=== PATIENT | female | born 1960 | race Caucasian/White ===

== ENCOUNTER → 2018-04-25 | Outpatient (CLI) | payer BC ==
--- NOTE | 2018-04-29 08:04 | MM ---
Reason for exam: screening (asymptomatic). Last mammogram was performed 2 years and 11 months ago. History: Patient is postmenopausal and is nulliparous. Family history of breast cancer in sister at age 58. Benign excisional biopsy of the right breast, 2004. Physical Findings: A clinical breast exam by your physician is recommended on an annual basis and results should be correlated with mammographic findings. MG 3D Screening Mammo W/Cad Bilateral CC and MLO view(s) were taken. Prior study comparison: May 19, 2015, bilateral MG screening mammo w CAD. October 02, 2012, bilateral digital screening mammo w/CAD. The breast tissue is heterogeneously dense. This may lower the sensitivity of mammography. No significant changes when compared with prior studies. ASSESSMENT: Benign, BI-RAD 2 RECOMMENDATION: Routine screening mammogram of both breasts in 1 year.
== END | disposition home or self-care (01) ==
LOC: RADMAMWWP 16:45
PROVIDERS: ATTEND Internal Medicine
DX: Z12.31 Encounter for screening mammogram for malignant neoplasm of breast (principal); Z80.3 Family history of malignant neoplasm of breast
CPT/HCPCS: 77063; 77067

== ENCOUNTER → 2018-12-03 | Outpatient (CLI) | payer BC ==
[2018-12-03 07:55] LABS: HCT 39.6 % (34.0-46.0); MCH 31.9 pg (25.0-35.0); MCHC 32.8 g/dL (31.0-37.0); MCV 97.4 fL (80.0-100.0); Mean Platelet Volume 6.4; Platelet Count 236 k/uL (150-450); RBC 4.07 m/uL (3.80-5.40); RDW 13.2 % (11.5-15.5); WBC 3.7 k/uL (3.8-10.6)
[2018-12-03 08:00] LABS: Appearance,Urine Clear (Clear); Bilirubin,Urine Negative (Negative); Blood,Urine Trace (Negative); Color,Urine Yellow; Glucose,Urine (UA) Negative (Negative); Ketones,Urine Negative (Negative); Leukocyte Esterase,Urine Negative (Negative); Mucus,Urine Rare /hpf; Nitrite,Urine Negative (Negative); PH, Urine 6.5 (5.0-8.0); Protein,Urine Negative (Negative); RBC,Urine 3 /hpf (0-5); Specific Gravity,Urine 1.016 (1.001-1.035); Squamous Epithelial Cell,Urine <1 /hpf (0-4); Urobilinogen,Urine <2.0 mg/dL (<2.0); WBC,Urine 1 /hpf (0-5)
[2018-12-03 11:10] LABS: Albumin 4.4 g/dL (3.80-4.90); Anion Gap 8.4 mmol/L (4.00-12.00); Calcium 9.6 mg/dL (8.7-10.3); Carbon Dioxide 30.6 mmol/L (21.6-31.8); Globulin 2.2 g/dL (1.6-3.3); LDL Cholesterol,Calculated 97.8 mg/dL (0.0-131.0); Total Bilirubin 0.5 mg/dL (0.2-1.2); Total Protein 6.6 g/dL (6.2-8.2); VLDL Calculation 12.2 mg/dL (5.00-40.00)
== END | disposition home or self-care (01) ==
LOC: LABWHC1 07:20
PROVIDERS: ATTEND Internal Medicine
DX: I10 Essential (primary) hypertension (principal); E78.5 Hyperlipidemia, unspecified; R53.83 Other fatigue
CPT/HCPCS: 36415; 80053; 80061; 81001; 84443; 85027

== ENCOUNTER → 2019-05-21 | Outpatient (CLI) | payer BC ==
--- NOTE | 2019-05-23 09:42 | MM ---
Reason for exam: screening (asymptomatic). Last mammogram was performed 1 year and 1 month ago. History: Patient is postmenopausal and is nulliparous. Family history of breast cancer in sister at age 58. Benign excisional biopsy of the right breast, 2004. Physical Findings: A clinical breast exam by your physician is recommended on an annual basis and results should be correlated with mammographic findings. MG 3D Screening Mammo W/Cad Bilateral CC and MLO view(s) were taken. Prior study comparison: April 25, 2018, bilateral MG 3d screening mammo w/cad. May 19, 2015, bilateral MG screening mammo w CAD. The breast tissue is heterogeneously dense. This may lower the sensitivity of mammography. Focal asymmetry left lower inner quadrant. This finding is changed when compared with previous exams. ASSESSMENT: Incomplete: need additional imaging evaluation, BI-RAD 0 RECOMMENDATION: Special view mammogram of the left breast. If lesion persists on supplemental views, image directed ultrasound is recommended. [facility] will attempt to contact patient to return for supplemental views and ultrasound if indicated.
== END | disposition home or self-care (01) ==
LOC: RADMAMWWP 16:52
PROVIDERS: ATTEND Internal Medicine
DX: Z12.31 Encounter for screening mammogram for malignant neoplasm of breast (principal)
CPT/HCPCS: 77063; 77067

== ENCOUNTER → 2019-06-04 | Outpatient (CLI) | payer BC ==
--- NOTE | 2019-06-04 11:18 | MM ---
Reason for exam: additional evaluation requested from abnormal screening. Last mammogram was performed less than 1 month ago. History: Patient is postmenopausal and is nulliparous. Family history of breast cancer in sister at age 58. Benign excisional biopsy of the right breast, 2004. Physical Findings: Nurse did not find any significant physical abnormalities on exam. MG 3D Work Up W/Cad LT Spot compression CC, spot compression LM, and LM view(s) were taken of the left breast. Prior study comparison: May 21, 2019, bilateral MG 3d screening mammo w/cad. April 25, 2018, bilateral MG 3d screening mammo w/cad. No distinct lesion persists on additional views. These results were verbally communicated with the patient and result sheet given to the patient on 06/04/19. ASSESSMENT: Negative, BI-RAD 1 RECOMMENDATION: Return to routine screening mammogram schedule for both breasts.
== END | disposition home or self-care (01) ==
LOC: RADMAMWWP 10:14
PROVIDERS: ATTEND Internal Medicine
DX: R92.8 Other abnormal and inconclusive findings on diagnostic imaging of breast (principal)
CPT/HCPCS: 77061; 77065

== ENCOUNTER 2019-06-05 16:59 | Emergency (ER) | payer BC ==
[2019-06-05 17:04] VITALS: TEMP 98
--- NOTE | 2019-06-05 17:07 | ED ---
Chest Pain HPI - General Chief Complaint: Chest Pain Stated Complaint: High BP, chest pain Time Seen by Provider: 06/05/19 17:06 Source: patient, RN notes reviewed, old records reviewed Mode of arrival: ambulatory Limitations: no limitations - History of Present Illness Initial Comments: This is a 5-year-old female the ER for evaluation. Patient is today for evaluation of anxiety, patient having chest pain. Patient has no significant history of chest pain, also presented for blood pressure elevation anxiety, chest pain is left-sided rating to back. No prior history of similar pain. No nausea no vomiting no no shortness of breath, no fevers cough or congestion MD Complaint: chest pain -: hour(s) Onset: during rest Pain Location: substernal, left chest Pain Radiation: LUE, back Severity: moderate Severity scale (1-10): 4 Quality: tightness Consistency: constant Improves With: nothing Worsens With: nothing Anginal Symptoms: dyspnea Other Symptoms: cough Treatments Prior to Arrival: none - Related Data On Oral Contraceptives: No Home Medications Medication Instructions Recorded Confirmed No Known Home Medications 06/05/19 06/05/19 Allergies Allergy/AdvReac Type Severity Reaction Status Date / Time No Known Allergies Allergy Verified 06/05/19 17:22 Review of Systems ROS Statement: Those systems with pertinent positive or pertinent negative responses have been documented in the HPI. ROS Other: All systems not noted in ROS Statement are negative. EKG Findings - EKG Comments: EKG Findings:: EKG shows sinus rhythm rate of 69, [place] 124, QRS 80, QTC 447 Past Medical History Past Medical History: Hypertension History of Any Multi-Drug Resistant Organisms: None Reported Past Surgical History: Adenoidectomy, Tonsillectomy Past Psychological History: No Psychological Hx Reported Smoking Status: Never smoker Past Alcohol Use History: None Reported Past Drug Use History: None Reported General Exam Limitations: no limitations General appearance: alert, in no apparent distress Head exam: Present: atraumatic, normocephalic, normal inspection Eye exam: Present: normal appearance, PERRL, EOMI. Absent: scleral icterus, conjunctival injection, periorbital swelling ENT exam: Present: normal exam, mucous membranes moist Neck exam: Present: normal inspection. Absent: tenderness, meningismus, lymphadenopathy Respiratory exam: Present: normal lung sounds bilaterally. Absent: respiratory distress, wheezes, rales, rhonchi, stridor Cardiovascular Exam: Present: regular rate, normal rhythm, normal heart sounds. Absent: systolic murmur, diastolic murmur, rubs, gallop, clicks GI/Abdominal exam: Present: soft, normal bowel sounds. Absent: distended, tenderness, guarding, rebound, rigid Extremities exam: Present: normal inspection, full ROM, normal capillary refill. Absent: tenderness, pedal edema, joint swelling, calf tenderness Back exam: Present: normal inspection Neurological exam: Present: alert, oriented X3, CN II-XII intact Psychiatric exam: Present: normal affect, normal mood Skin exam: Present: warm, dry, intact, normal color. Absent: rash Course Vital Signs 06/05/19 06/05/19 06/05/19 17:01 19:32 20:36 Temperature 98 F Pulse Rate 84 74 78 Respiratory 16 18 18 Rate Blood Pressure 171/83 150/86 117/86 O2 Sat by Pulse 100 100 100 Oximetry - Reevaluation(s) Reevaluation #1: Medical record is reviewed Patient still remains anxious but no need for blood pressure medication Chest Pain MDM - MDM 59 female the ER for evaluation of elevated blood pressure, blood pressure chest pain. Anxiety. Patient has normal chest CTA. Normal lab values, patient feeling better anxiety is decreased chest pain is improved and blood pressures improved without treatment. Patient can be discharged home Disposition Clinical Impression: Chest pain, Hypertension Disposition: HOME SELF-CARE Condition: Good Instructions (If sedation given, give patient instructions): Chest Pain (ED) Is patient prescribed a controlled substance at d/c from ED?: No Referrals: Nomi Mora MD [Primary Care Provider] - 1-2 days
[2019-06-05 18:17] LABS: Basophils % (A) 0 %; Eosinophils # (A) 0.1 k/uL (0-0.7); Eosinophils % (A) 1 %; HCT 40.3 % (34.0-46.0); HGB 13.3 gm/dL (11.4-16.0); Lymphocytes % (A) 19 %; MCH 31.7 pg (25.0-35.0); MCHC 33.1 g/dL (31.0-37.0); MCV 95.9 fL (80.0-100.0); Mean Platelet Volume 6.9; Monocytes # (A) 0.3 k/uL (0-1.0); Monocytes % (A) 6 %; Neutrophils # (A) 3.8 k/uL (1.3-7.7); Neutrophils % (A) 71 %; Platelet Count 221 k/uL (150-450); RDW 12.8 % (11.5-15.5); WBC 5.4 k/uL (3.8-10.6)
[2019-06-05 18:24] LABS: Albumin 4.8 g/dL (3.5-5.0); Calcium 9.9 mg/dL (8.4-10.2); Magnesium 2.2 mg/dL (1.6-2.3); Potassium 4.5 mmol/L (3.5-5.1); Total Bilirubin 0.6 mg/dL (0.2-1.3); Total Protein 7.9 g/dL (6.3-8.2)
--- NOTE | 2019-06-05 18:25 | XR ---
EXAMINATION TYPE: XR chest 2V DATE OF EXAM: 06/05/2019 COMPARISON: NONE HISTORY: Chest pain TECHNIQUE: Frontal and lateral views of the chest are obtained. FINDINGS: Heart and mediastinum are normal. Lungs are clear. Diaphragm is normal. There are chest le ads. Bony thorax is intact. There is minimal pleural thickening at the right lung apex. IMPRESSION: Mild pleural scarring at the right lung apex. No acute lung disease.
[2019-06-05 18:31] LABS: D-Dimer 0.29 mg/L FEU (<0.60); INR 0.9 (<1.2); Partial Thromboplastin Time 26.2 sec (22.0-30.0); Prothrombin Time 9.8 sec (9.0-12.0)
[2019-06-05] MEDS ORDERED: LABETALOL SYRINGE 5 MG/ML IVP STA (18:35)
[2019-06-05] MEDS ORDERED: LABETALOL 5 MG/ML VIAL MDV IVP STA (18:56)
[2019-06-05 19:33] VITALS: RESP 18
--- NOTE | 2019-06-05 19:43 | CT ---
EXAMINATION TYPE: CT angio chest DATE OF EXAM: 06/05/2019 7:28 PM COMPARISON: None HISTORY: Chest pain, high BP CT DLP: 175.4 mGycm Automated exposure control for dose reduction was used. CONTRAST: CTA scan of the thorax is performed with IV Contrast, patient injected with 100 mL of Isovue 370, pul monary embolism protocol. . There are 3-D post processed images. FINDINGS: There is minimal pleural thickening at the right lung apex. There is similar minimal change at the le ft lung apex. There is no evidence of a pulmonary mass. Heart size is normal. There is no pericardial effusion. There is no pleural effusion. Upper abdominal soft tissues are intact. There are no hilar masses. There is no mediastinal adenopathy. Thoracic aorta is intact. Ascending ao rta measures 3.3 cm. There is normal contrast opacification of the pulmonary arteries. There are no filling defects. The b romy thorax appears intact. IMPRESSION: MILD BILATERAL APICAL PLEURAL SCARRING. NO SUSPICIOUS PULMONARY MASS. NO EVIDENCE OF PULMONARY EMBOLI SM.
[2019-06-05 20:37] VITALS: BP 117/86; PULSE 78
== END 2019-06-05 20:37 | disposition home or self-care (01) ==
LOC: EC 16:59
DX: R07.2 Precordial pain (principal); I10 Essential (primary) hypertension; Z53.8 Procedure and treatment not carried out for other reasons
CPT/HCPCS: 36415; 93005; 85379; 83880; 80053; 83690; 83735; 84484; 85025; 85610; 85730; 71046; 71275; 99285; Q9967

== ENCOUNTER 2019-07-31 12:32 | Day surgery (SDC) | payer BC ==
[2019-07-24 09:52] VITALS: BMI 18.3
[~2019-07-31 12:32] MED LIST: DEXAMETHASONE SOD PHOSPHATE 10 MG/ML 1 ML VIAL IV ONE; HEPARIN SODIUM,PORCINE 5,000 UNIT/ML 1 ML VIAL SQ ONE; HYDROmorphone 0.5 MG/0.5 ML SYRINGE IVP PRN; LACTATED RINGERS 1,000 ML IV SCH; ONDANSETRON 4 MG/2 ML VIAL IVP ONE; SCOPOLAMINE 1.5MG/72HR PATCH TRANSDERM ONE
[2019-07-31] MEDS: LIDOCAINE 1% 20 ML VIAL (10MG/ML) FOR IV START INTRADERMA PRN ×2 (13:14→13:15)
[2019-07-31] MEDS ORDERED: MIDAZOLAM (PF) 2 MG/2 ML VIAL IV ONE (13:29)
--- NOTE | 2019-07-31 14:13 | P.ANPRN ---
Procedure Note - Anesthesia - Nerve Block Performed Bilateral Transversus Abdominis Single Time Out Performed: Yes Date of Procedure: 07/31/19 Procedure Start Time: 13:28 Procedure Stop Time: 13:48 Location of Patient Procedure: PreOp Indication: Acute Post-Operative Pain, Requested by Surgeon Sedation Type: Sedate with meaningful contact maintained Preparation: Sterile Prep, Sterile Dressing Position: Supine Catheter: None Needle Types: Pajunk Needle Gauge: 20 Ultrasound used to visualize needle placement: Yes Ultrasound used to observe medication spread: Yes Injectate: Other (see comment) (ropivacaine 0.2% 20 ml per side) Blood Aspirated: No Pain Paresthesia on Injection Noted: No Resistance on Injection: Normal Image Stored and Saved: Yes Events: Uneventful and Well Tolerated
[2019-07-31] MEDS ORDERED: NEOSTIGMINE 1 MG/ML 10 ML VIAL ONE (14:33)
[2019-07-31] MEDS ORDERED: SUCCINYLCHOLINE CHLORIDE 100 MG/5 ML SYR IV ONE (14:33)
[2019-07-31] MEDS ORDERED: fentaNYL (PF) 50 MCG/ML 2 ML AMP ONE (14:33)
[2019-07-31] MEDS ORDERED: LIDOCAINE 1% INJ 10MG/ML (20 ML MDV) ONE (14:33)
[2019-07-31] MEDS ORDERED: MIDAZOLAM 2 MG/2 ML VIAL ONE (14:33)
[2019-07-31] MEDS ORDERED: ROCURONIUM BROMIDE 10 MG/ML 10 ML VIAL IV ONE (14:33)
[2019-07-31] MEDS ORDERED: DEXAMETHASONE SOD PHOS (MDV) 100 MG/10 ML VIAL ONE (14:33)
[2019-07-31] MEDS ORDERED: PROPOFOL 10 MG/ML 20 ML VIAL IV ONE (14:33)
[2019-07-31] MEDS ORDERED: GLYCOPYRROLATE 0.2 MG/ML 2 ML VIAL ONE (14:33)
[2019-07-31] MEDS ORDERED: BUPIVACAINE (PF) 0.25% 30 ML VIAL SQ ONE ×2 (14:38)
--- NOTE | 2019-07-31 16:10 | P.OP ---
Date of Procedure: 07/31/19 Preoperative Diagnosis: Left femoral hernia Postoperative Diagnosis: Left inguinal hernia Procedure(s) Performed: Robotic left inguinal hernia repair Anesthesia: DOROTHY Surgeon: Teo Lewis Pathology: none sent Condition: stable Disposition: same day Indications for Procedure: 59-year-old female initially presented to the surgery clinic with complaints of left groin pain and a left groin bulge. On exam, it appeared that the patient did have a left femoral hernia and is also noted to have a history of a right femoral hernia that was repaired approximately 20 years ago. She denied any nausea or vomiting. Secondary to this, plan was made for a left robotic hernia repair. She was explained the risks, benefits and alternatives to the procedure and did provide consent prior to attending the operating suite. Operative Findings: Left indirect inguinal hernia Description of Procedure: The patient was brought into the operating suite and placed in supine position on the operating table. Sedation was provided by anesthesia and the patient un derwent endotracheal intubation. The patient was then prepped and draped in regular sterile fashion. A super umbilical vertical midline incision was made 20 cm superior to the pubis. Dissection was carried to the fascia the fascia was incised and a 12 mm trocar was placed. Pneumoperitoneum was then achieved. The hernia was clearly visualized on the left side. The right side was also examined and the previous repair was noted to be intact with no obvious herniation. 2 additional 8 mm trochars were placed 11 cm lateral to the midline incision site. The robot was undocked appropriately. After the patient was positioned, dissection was carried from the lateral aspect towards the medial aspect to create a window in the peritoneum. Dissection was carried and it was noted that the patient in fact had a indirect inguinal hernia. Dissection was carried to free the hernia sac from the cord structures. Once an appropriate amount of space was dissected, a Parietex Progrop mesh was placed into appropriate position. Once an appropriate position, the arterial defect was closed with a running 2-0 Vlock suture. The robot was undocked. The super umbilical incision site was closed with a Arnold-Ronda device and 0 Vicryl suture under direct visualization. All skin incisions were closed with 4-0 Vicryl subcuticular suture. The patient was awakened in the operating suite and taken to postanesthesia care unit in stable condition.
[2019-07-31 16:18] VITALS: TEMP 98.1
[2019-07-31 16:33] VITALS: RESP 16
[2019-07-31 17:57] VITALS: BP 134/73; PULSE 64
== END 2019-07-31 18:29 | disposition home or self-care (01) ==
LOC: OR 12:32
PROVIDERS: ATTEND Surgery
DX: K40.90 Unilateral inguinal hernia, without obstruction or gangrene, not specified as recurrent (principal); K41.90 Unilateral femoral hernia, without obstruction or gangrene, not specified as recurrent; I10 Essential (primary) hypertension; I08.3 Combined rheumatic disorders of mitral, aortic and tricuspid valves; Z79.899 Other long term (current) drug therapy; Z90.89 Acquired absence of other organs
CPT/HCPCS: 64488; 49650; C1781; J2250 ×2; J1644; J1100 ×2; J2710; J0690; J2405; J2001; J3010; J0330; J2704; J1170

== ENCOUNTER → 2019-09-09 | Outpatient (CLI) | payer BC | END | disposition home or self-care (01) | LOC: LABWHC1 16:57 | PROVIDERS: ATTEND Internal Medicine | DX: R53.83 Other fatigue (principal); L65.8 Other specified nonscarring hair loss | CPT/HCPCS: 36415; 84443 ==

== ENCOUNTER → 2019-10-03 | Outpatient (CLI) | payer BC ==
--- NOTE | 2019-10-03 08:39 | US ---
EXAMINATION TYPE: US abdomen complete DATE OF EXAM: 10/03/2019 COMPARISON: NONE CLINICAL HISTORY: R10.13 epigastric pain. recent inguinal hernia repair on the left and she has had e pigastric pain radiating upward EXAM MEASUREMENTS: Liver Length: 14.3 Gallbladder Wall: 0.1m CBD: 0.7m Spleen: 8.2m Right Kidney: 12.0 x 4.1cm Left Kidney: 11.3 x 4.1 x 5.4cm patient is extremely thin which made contact with probe very challenging Pancreas: wnl Liver: wnl Gallbladder: multiple folds Evidence for sonographic Estrada's sign: no CBD: wnl Spleen: wnl Right Kidney: appearance of severe hydronephrosis seen. Left Kidney: wnl Upper IVC: wnl Abd Aorta: wnl The liver is homogenous. The intrahepatic portion of the IVC and proximal abdominal aorta are within normal limits. There is no evidence of cholelithiasis. Common bile duct is unremarkable. The visu alized portions of the pancreas are homogenous. The spleen is unremarkable. Kidneys are symmetric a nd free of hydronephrosis. No renal lesions are seen. IMPRESSION: No distinct abnormality appreciated.
== END | disposition home or self-care (01) ==
LOC: RADUSWWP 07:41
PROVIDERS: ATTEND Internal Medicine Gastroenterology
DX: R10.13 Epigastric pain (principal)
CPT/HCPCS: 76700

== ENCOUNTER → 2019-12-03 | Outpatient (CLI) | payer BC ==
[2019-12-03 07:58] LABS: HCT 40.5 % (34.0-46.0); HGB 13.5 gm/dL (11.4-16.0); MCH 32.7 pg (25.0-35.0); MCHC 33.3 g/dL (31.0-37.0); MCV 98.3 fL (80.0-100.0); Mean Platelet Volume 7.7; Platelet Count 167 k/uL (150-450); RBC 4.13 m/uL (3.80-5.40); WBC 3.5 k/uL (3.8-10.6)
[2019-12-03 08:01] LABS: Appearance,Urine Clear (Clear); Bacteria,Urine Rare /hpf; Bilirubin,Urine Negative (Negative); Blood,Urine Moderate (Negative); Color,Urine Yellow; Glucose,Urine (UA) Negative (Negative); Ketones,Urine Negative (Negative); Leukocyte Esterase,Urine Negative (Negative); Mucus,Urine Rare /hpf; Nitrite,Urine Negative (Negative); PH, Urine 5.5 (5.0-8.0); Protein,Urine Negative (Negative); RBC,Urine 8 /hpf (0-5); Specific Gravity,Urine 1.025 (1.001-1.035); Squamous Epithelial Cell,Urine 1 /hpf (0-4); Urobilinogen,Urine <2.0 mg/dL (<2.0); WBC,Urine 1 /hpf (0-5)
[2019-12-03 13:59] LABS: African American GFR (CKD) 70.9 (60.0-200.0); Albumin 4.5 g/dL (3.80-4.90); Albumin/Globulin Ratio 2.25 (1.60-3.17); Anion Gap 6.9 mmol/L (4.00-12.00); Calcium 9.6 mg/dL (8.7-10.3); Carbon Dioxide 30.1 mmol/L (21.6-31.8); Chol/HDL Ratio 2.16; LDL Cholesterol,Calculated 80.6 mg/dL (0.0-131.0); Non-African American GFR(CKD) 61.2 (60.0-200.0); Total Bilirubin 0.4 mg/dL (0.3-1.2); Total Protein 6.5 g/dL (6.2-8.2); VLDL Calculation 12.4 mg/dL (5.00-40.00)
== END | disposition home or self-care (01) ==
LOC: LABWHC1 07:13
PROVIDERS: ATTEND Internal Medicine
DX: I10 Essential (primary) hypertension (principal); E78.5 Hyperlipidemia, unspecified; R19.01 Right upper quadrant abdominal swelling, mass and lump
CPT/HCPCS: 36415; 80053; 80061; 81001; 85027

== ENCOUNTER → 2019-12-15 | Outpatient (CLI) | payer BC ==
--- NOTE | 2019-12-15 12:20 | BD ---
EXAMINATION TYPE: Axial Bone Density DATE OF EXAM: 12/15/2019 COMPARISON: NONE CLINICAL HISTORY: M 89.9 Height: 65 Weight: 103.5 FRAX RISK QUESTIONS: Alcohol (3 or more units per day): no Family History (Parent hip fracture): no Glucocorticoids (More than 3mos): no (Ex: prednisone, prednisolone, methylprednisolone, dexamethasone, and hydrocortisone). History of Fracture in Adulthood: no Secondary Osteoporosis: 1. Type 1 Diabetes: no 2. Hyperthyroidism: no 3. Menopause before 45: no 4. Malnutrition: no 5. Chronic liver disease: no Rheumatoid Arthritis: no Current Tobacco Use: no RISK FACTORS HISTORY OF: Family History of Osteoporosis: no Active: yes Diet low in dairy products/other sources of calcium: no Postmenopausal woman: yes age 49 Lost more than 2 inches in height since high school: no MEDICATIONS: Lexapro Additional History: EXAM MEASUREMENTS: Bone mineral densitometry was performed using the [employer]. Bone mineral density as measured about the Lumbar spine is: ----- L1-L4(G/cm2): 1.175 T Score Values are as follows: ----- L2: -0.1 ----- L3: 0.0 ----- L4: 0.1 ----- L1-L4: 0.0 Bone mineral density : baseline Bone mineral density about the R hip (g/cm2): 0.922 Bone mineral density about the L hip (g/cm2): 0.917 T Score values are as follows: -----R Neck: -0.8 -----L Neck: -0.9 -----R Total: -0.8 -----L Total: -0.8 Bone mineral density : baseline IMPRESSION: Normal (Values between +1 and -1 indicate normal bone mass). Consider repeating this study in 5 year s or sooner if there is some new clinical indication. NOTE: T-SCORE=SD OF THE YOUNG ADULT MEAN.
== END | disposition home or self-care (01) ==
LOC: RADBDWWP 10:30
PROVIDERS: ATTEND Internal Medicine
DX: M89.9 Disorder of bone, unspecified (principal)
CPT/HCPCS: 77080

== ENCOUNTER → 2019-12-18 | Outpatient (CLI) | payer BC ==
--- NOTE | 2019-12-18 18:05 | CT ---
EXAMINATION TYPE: CT abdomen pelvis w con DATE OF EXAM: 12/18/2019 COMPARISON: Ultrasound 10/03/2019 HISTORY: RUQ MASS, FREQUENT UTIS CT DLP: 587 mGycm Automated exposure control for dose reduction was used. CONTRAST: CT scan of the abdomen pelvis is performed with IV Contrast, patient injected with 100 mL of Isovue 3 00. FINDINGS- LUNG BASES- No significant abnormality is appreciated. Heart is mildly prominent and there is a trac e of pericardial fluid. LIVER/GB-there is mild central intrahepatic biliary dilation. No obvious gallstones. Extrahepatic claudia e duct is mildly prominent and terminates abruptly near the level the pancreatic head.. PANCREAS- No gross abnormality is seen. SPLEEN- No gross abnormality is seen. ADRENALS- No gross abnormality is seen. KIDNEYS/BLADDER-there is marked distention of the right renal pelvis compatible severe hydronephrosis likely the level the UPJ.. Subcentimeter simple left renal cysts. BOWEL-bowel gas pattern nonspecific with no obstruction. Extensive retained fecal debris.. LYMPH NODES- No greater than 1cm abdominal or pelvic lymph nodes areappreciated. OSSEOUS STRUCTURES-heterogeneous appearance to the vertebral bodies of the lumbar spine and lower tho racic spine is no evidence of correlation with MRI could BE obtained if clinically warranted.. OTHER- aorta of normal caliber. Uterus is somewhat heterogeneous in appearance. Tarlov cysts involvi ng the sacrum are noted. IMPRESSION- 1. There is marked distention of the right renal pelvis with no definite calcification seen. This may be on the basis of a UPJ obstruction. Correlate clinically. 2. There is mild intrahepatic biliary ductal dilation. Extrahepatic proximal common bile duct is dila feli and demonstrates abrupt termination. Recommend follow-up MRCP or ERCP for further evaluation. 3. Correlate for constipation.
== END | disposition home or self-care (01) ==
LOC: RADCTMAIN 15:13
PROVIDERS: ATTEND Internal Medicine
DX: K83.9 Disease of biliary tract, unspecified (principal); N28.89 Other specified disorders of kidney and ureter
CPT/HCPCS: 74177; Q9967

== ENCOUNTER → 2020-04-13 | Outpatient (CLI) | payer BC ==
--- NOTE | 2020-04-13 15:02 | NM ---
EXAMINATION TYPE: NM renal flow and function DATE OF EXAM: 04/13/2020 COMPARISON: CT dated 12/18/2019 HISTORY: Hydronephrosis Following administration of 10.2 mCi Tc99m MAG3. Immediate images post injection. FINDINGS: Left: 94 %. Right: 6 %. Max renal flow left: 3 minutes. Max renal flow right: 6 minutes. Satisfactory accumulation of radiotracer within both renal collecting systems. T 1/2 left: 8 minutes minutes. T 1/2 right: NA minutes. FINDINGS: Markedly asymmetric uptake between the right and left kidneys, left greater than right with abnormal asymmetric renal flow and half time IMPRESSION: Markedly abnormal right renal radiotracer uptake indicative of abnormal renal function an d markedly abnormal excretion related to the known left hydronephrosis suggesting obstructive uropath y.
== END | disposition home or self-care (01) ==
LOC: RADNMMAIN 08:28
PROVIDERS: ATTEND Urology
DX: R93.5 Abnormal findings on diagnostic imaging of other abdominal regions, including retroperitoneum (principal); N13.0 Hydronephrosis with ureteropelvic junction obstruction
CPT/HCPCS: 78707; A9562

== ENCOUNTER → 2020-05-10 | Outpatient (CLI) | payer BC ==
[2020-05-10 11:06] LABS: HCT 38.1 % (34.0-46.0); HGB 12.2 gm/dL (11.4-16.0); MCH 31.5 pg (25.0-35.0); MCHC 31.9 g/dL (31.0-37.0); MCV 98.8 fL (80.0-100.0); Mean Platelet Volume 7.6; Platelet Count 200 k/uL (150-450); RBC 3.85 m/uL (3.80-5.40); RDW 13.2 % (11.5-15.5); WBC 3.9 k/uL (3.8-10.6)
[2020-05-10 18:01] LABS: Prolactin 11.1 ng/mL (2.8-29.2); T4, Free (Free Thyroxine) 1.1 ng/dL (0.80-1.80); Thyroid Peroxidase Antibodies 34.4 U/mL (0.0-60.0)
[2020-05-10 23:40] LABS: ACTH 14.8 pg/mL (0.00-45.99)
== END | disposition home or self-care (01) ==
LOC: LABWHC1 10:02
PROVIDERS: ATTEND Internal Medicine Endocrinology, Diabetes & Metabolism
DX: R53.83 Other fatigue (principal)
CPT/HCPCS: 36415; 82024; 82533; 82607; 84146; 84439; 84443; 84481; 85027; 86376

== ENCOUNTER → 2020-12-20 | Outpatient (CLI) | payer BC ==
--- NOTE | 2020-12-21 09:30 | US ---
EXAMINATION TYPE: US kidneys/renal and bladder DATE OF EXAM: 12/20/2020 COMPARISON: CT 2019, US 2018 CLINICAL HISTORY: N18.2 Chronic kidney disease Stage 2. EXAM MEASUREMENTS: Right Kidney: 10.0 x 6.0 x 5.8 cm Left Kidney: 12.3 x 5.5 x 5.1 cm Right Kidney: severe hydronephrosis. Findings appear similar to the 10/03/2019 hours. Left Kidney: no hydronephrosis, small simple cystic area inferior pole measuring 1.6 cm in diameter. Bladder: wnl Bilateral Jets seen: right jet not seen, left jet seen IMPRESSION: 1. Severe right hydronephrosis with poor visualization of residual renal tissue. 2. Exam Essentially stable from 10/03/2019.
== END | disposition home or self-care (01) ==
LOC: RADUSWWP 14:13
PROVIDERS: ATTEND Internal Medicine
DX: N13.30 Unspecified hydronephrosis (principal); N18.2 Chronic kidney disease, stage 2 (mild)
CPT/HCPCS: 76770

== ENCOUNTER → 2021-04-06 | Outpatient (CLI) | payer BC ==
[2021-04-07 03:31] LABS: Folate, Serum >24.0 ng/mL
== END | disposition home or self-care (01) ==
LOC: LABWHC1 10:59
PROVIDERS: ATTEND Family Medicine
DX: R20.2 Paresthesia of skin (principal); R29.898 Other symptoms and signs involving the musculoskeletal system
CPT/HCPCS: 36415; 82607; 82746; 84207

== ENCOUNTER → 2021-04-19 | Outpatient (CLI) | payer BC ==
--- NOTE | 2021-04-19 15:02 | CT ---
EXAMINATION TYPE: CT brain wo con DATE OF EXAM: 04/19/2021 COMPARISON: None HISTORY: 60-year-old female Facial tingling, left hand weakness TECHNIQUE: Examination was done in axial plane without intravenous contrast. Coronal and sagittal r econstructions performed. CT DLP: 1097 mGycm Automated exposure control for dose reduction was used. FINDINGS: There is no evidence of acute intracranial hemorrhage, acute ischemic changes, mass, mass-effect, or extra-axial fluid collection. There is no effacement of cerebral sulci or basal subarachnoid cister ns. There is no hydrocephalus. There is no midline shift. Samuel-white matter distinction is preserv ed. Mild age-related cerebral cortical loss. Paranasal sinuses and mastoid air cells are well pneumatized. Orbits and globes are intact. IMPRESSION: Mild age-related cerebral volume loss. No acute intracranial abnormality seen.
== END | disposition home or self-care (01) ==
LOC: RADCTMAIN 13:40
PROVIDERS: ATTEND Family Medicine
DX: R20.2 Paresthesia of skin (principal); R29.898 Other symptoms and signs involving the musculoskeletal system
CPT/HCPCS: 70450

== ENCOUNTER → 2021-05-10 | Outpatient (CLI) | payer BC ==
--- NOTE | 2021-05-13 13:32 | MM ---
Reason for exam: screening (asymptomatic). Last mammogram was performed 1 year and 11 months ago. History: Patient is postmenopausal and is nulliparous. Family history of breast cancer in sister at age 58. Benign excisional biopsy of the right breast, 2004. Physical Findings: A clinical breast exam by your physician is recommended on an annual basis and results should be correlated with mammographic findings. MG Screening Mammo w CAD Bilateral CC and MLO view(s) were taken. Prior study comparison: June 04, 2019, left breast MG 3d work up w/cad LT. May 21, 2019, bilateral MG 3d screening mammo w/cad. The breast tissue is heterogeneously dense. This may lower the sensitivity of mammography. ASSESSMENT: Incomplete: need additional imaging evaluation, BI-RAD 0 RECOMMENDATION: Ultrasound of the right breast. (right axillary lump) [facility] will attempt to contact patient to return for ultrasound.
== END | disposition home or self-care (01) ==
LOC: RADMAMWWP 13:39
PROVIDERS: ATTEND Family Medicine
DX: Z12.31 Encounter for screening mammogram for malignant neoplasm of breast (principal); Z78.0 Asymptomatic menopausal state; Z80.3 Family history of malignant neoplasm of breast
CPT/HCPCS: 77067

== ENCOUNTER → 2021-05-24 | Outpatient (CLI) | payer BC ==
--- NOTE | 2021-05-24 15:24 | USB ---
EXAMINATION TYPE: US breast workup limited RT DATE OF EXAM: 05/24/2021 COMPARISON: Mammogram 05/10/2021 CLINICAL HISTORY: R92.8 abnormal mammogram. Findings: Right axillary ultrasound was performed. A normal-appearing lymph node is seen. No sonographic correl ate for palpable abnormality. IMPRESSION: No sonographic correlate for right axillary palpable abnormality. Clinical follow-up is recommended. BI-RADS 2, benign. Yearly screening mammogram is recommended.
== END | disposition home or self-care (01) ==
LOC: RADUSWWP 14:48
PROVIDERS: ATTEND Family Medicine
DX: R92.8 Other abnormal and inconclusive findings on diagnostic imaging of breast (principal)

== ENCOUNTER → 2021-06-15 | Outpatient (CLI) | payer BC ==
--- NOTE | 2021-07-19 13:58 | EM ---
EVENT MONITOR THIRTY-DAY EVENT MONITOR: AGE:: 61 SEX:: Female This is a 30-day event monitor, but patient only wore it for 15 days. The provided strips show that the patient is in sinus rhythm with frequent PVCs and ventricular bigeminy. There was one episode of paroxysmal atrial tachycardia. CONCLUSION: Event monitor was only worn for 15 days. It shows sinus rhythm with PVCs and ventricular bigeminy. MMODL / IJN: [id number] /
== END | disposition home or self-care (01) ==
LOC: RADECHMAIN 11:54
PROVIDERS: ATTEND Psychiatry & Neurology Neurology
DX: I49.3 Ventricular premature depolarization (principal)
CPT/HCPCS: 93270

== ENCOUNTER → 2021-07-04 | Outpatient (CLI) | payer BC ==
--- NOTE | 2021-07-04 09:52 | MR ---
EXAMINATION TYPE: MR brain wo con DATE OF EXAM: 07/04/2021 COMPARISON: NONE HISTORY: Dizziness, pain and weakness claudia upper extremities, Stroke TECHNIQUE: T1-weighted sagittal, T2, FLAIR, and diffusion axial, and T2 coronal coronal views of the brain are submitted. FINDINGS: There is no evidence of acute ischemia. The ventricles, basal cisterns, and sulci overlying the conv exities are consistent with the patient's age. There is no mass effect. Craniocervical junction maintained. The pituitary gland has a convex upper margin. Changes of chronic sinusitis noted. No cerebellopontine angle mass. IMPRESSION: 1. No acute intracranial process. 2. Prominence in size pituitary gland. Correlate clinically
--- NOTE | 2021-07-04 10:10 | MR ---
EXAMINATION TYPE: MR angio head wo/neck wo/w con DATE OF EXAM: 07/04/2021 COMPARISON: NONE HISTORY: Dizziness, pain and weakness claudia upper extremities, Stroke TECHNIQUE: Utilizing 3-D [id number] intracranial MRA of the [place] was performed. FINDINGS: The vertebrobasilar and carotid systems are patent. There is no sizable aneurysm or vascular malform ation. Posterior cerebral artery on the right originates from the anterior circulation. The carotid bifurcations are widely stenosis. Vertebral arteries are symmetric. IMPRESSION: 1. No evidence of vascular malformation or sizable aneurysm. 2. No evidence of carotid artery stenosis.
== END | disposition home or self-care (01) ==
LOC: RADMRIMAIN 08:06
PROVIDERS: ATTEND Psychiatry & Neurology Neurology
DX: I63.9 Cerebral infarction, unspecified (principal)
CPT/HCPCS: 70544; 70549; 70551; A9585

== ENCOUNTER → 2022-02-09 | Outpatient (CLI) | payer BC ==
--- NOTE | 2022-02-09 17:50 | US ---
EXAMINATION TYPE: US kidneys/renal and bladder DATE OF EXAM: 02/09/2022 COMPARISON: US, CT 12/18/2019 CLINICAL HISTORY: N13.30 HYDRONEPHROSIS. Hydronephrosis. EXAM MEASUREMENTS: Right Kidney: 12.5 x 7.0 x 6.5 cm Left Kidney: 12.6 x 5.2 x 5.3 cm Right Kidney: Severe hydronephrosis seen. Kidney appears slightly enlarged. Left Kidney: Hyperechoic focus seen: 0.3 x 0.3 x 0.3 cm. Anechoic area seen inferior pole: 1.4 x 1.5 x 1.3 cm. Pyramids appear prominent. Kidney appears slightly enlarged. Bladder: Appears anechoic. The most Bilateral Jets seen: Right jet not seen. Left jet visualized. IMPRESSION: 1. Severe right hydronephrosis. Given similar to ablation dating back to 12/18/2019 this could be chrome cleaner marilou. Clinical correlation advised. 2. Nonobstructing left renal calculus suspected.
== END | disposition home or self-care (01) ==
LOC: RADUSWWP 16:08
PROVIDERS: ATTEND Internal Medicine Nephrology
DX: N13.30 Unspecified hydronephrosis (principal)
CPT/HCPCS: 76770

== ENCOUNTER → 2022-02-28 | Outpatient (CLI) | payer BC ==
--- NOTE | 2022-02-28 13:31 | CT ---
EXAMINATION TYPE: CT abdomen pelvis wo con DATE OF EXAM: 02/28/2022 COMPARISON: CT dated 12/18/2019 HISTORY: CALCULUS OF KIDNEY LEFT CT DLP: 485 mGycm Automated exposure control for dose reduction was used. TECHNIQUE: Helical acquisition of images was performed from the lung bases through the pelvis. FINDINGS: LUNG BASES: No significant abnormality is appreciated. LIVER/GB: No definite hepatic focal lesion by this nonenhanced CT scan. No definite radiodense gallbl adder calculi. Dilated CBD measuring 11 mm, appreciated previously. PANCREAS: No significant abnormality is seen. SPLEEN: No significant abnormality is seen. ADRENALS: No significant abnormality is seen. KIDNEYS: Marked right renal parenchymal atrophy and severe right renal collecting system dilatation, appreciated previously. Tiny calculus/calcification measuring 2 mm of the mid to lower pole of the le ft kidney. No left-sided hydroureter or hydronephrosis. 15 mm left lower pole renal cyst, slightly mo re hyperdense compared to the previous CT scan probably due to internal hemorrhage or proteinaceous m aterial. Suspected other few left renal cysts. No definite left ureteric stone. The urinary bladder i s not distended. FREE AIR: No free air is visualized RETROPERITONEAL ADENOPATHY: None visualized REPRODUCTIVE ORGANS: No gross uterine or adnexal mass yet suboptimally assessed. PELVIC ADENOPATHY: None visualized. OSSEOUS STRUCTURES: No aggressive bone lesion. BOWEL: Suboptimal assessment of the small and large bowel due to paucity of intra-abdominal fat. Fec al loading of the colon with hyperdense fecal material suggestive of constipation. OTHER: No sizable ascites. IMPRESSION: Atrophic right kidney with marked dilatation of the right renal collecting system, appreciated previo usly. Tiny calcification/calculus at the midpole of the left kidney measuring 2 mm. Suspected left lo wer pole renal cyst, slightly more hyperdense as compared to the previous CT scan as described above. Other few left renal hypodensities, possibly representing renal cysts. No left-sided hydroureter or hydronephrosis. No other definite radiodense urinary calculi. Incidental findings as described above.
== END | disposition home or self-care (01) ==
LOC: RADCTMAIN 08:49
PROVIDERS: ATTEND Urology
DX: N26.1 Atrophy of kidney (terminal) (principal); N20.0 Calculus of kidney
CPT/HCPCS: 74176

== ENCOUNTER → 2022-03-28 | Outpatient (CLI) | payer BC | LOC: NEUROMAIN 09:05 | PROVIDERS: ATTEND Psychiatry & Neurology Neurology | DX: R41.3 Other amnesia (principal); R94.01 Abnormal electroencephalogram [EEG] | CPT/HCPCS: 95816 ==

== ENCOUNTER → 2022-06-15 | Outpatient (CLI) | payer BC ==
[2022-06-15 11:18] LABS: Basophils % (A) 1 %; Eosinophils % (A) 1 %; HCT 40.8 % (34.0-46.0); HGB 13.4 gm/dL (11.4-16.0); Lymphocytes % (A) 26 %; MCH 33.2 pg (25.0-35.0); MCHC 32.8 g/dL (31.0-37.0); MCV 101.2 fL (80.0-100.0); Macrocytosis Slight; Mean Platelet Volume 7.5; Monocytes # (A) 0.3 k/uL (0-1.0); Monocytes % (A) 7 %; Neutrophils # (A) 2.3 k/uL (1.3-7.7); Neutrophils % (A) 62 %; Platelet Count 212 k/uL (150-450); RBC 4.03 m/uL (3.80-5.40); RDW 13.3 % (11.5-15.5); WBC 3.7 k/uL (3.8-10.6)
== END | disposition home or self-care (01) ==
LOC: LABWHC1 10:43
PROVIDERS: ATTEND Internal Medicine
DX: D72.819 Decreased white blood cell count, unspecified (principal)
CPT/HCPCS: 36415; 85025

== ENCOUNTER → 2022-06-20 | Outpatient (CLI) | payer BC | END | disposition home or self-care (01) | LOC: LABWHC1 10:56 | PROVIDERS: ATTEND Internal Medicine | DX: D75.89 Other specified diseases of blood and blood-forming organs (principal) | CPT/HCPCS: 36415; 82607; 82746 ==

== ENCOUNTER → 2022-07-11 | Outpatient (CLI) | payer BC ==
--- NOTE | 2022-07-12 10:46 | MM ---
Reason for Exam: Screening (asymptomatic). Last mammogram was performed 1 year(s) and 2 month(s) ago. Patient History: Menarche at age 11. Patient has no children. Hysterectomy at age 50. Postmenopausal. 2004, Benign Excisional Biopsy on the right side. Sister had breast cancer, age 58. Risk Values: Anaid 5 year model risk: 3.6%. NCI Lifetime model risk: 14.9%. Prior Study Comparison: 05/21/2019 Bilateral Screening Mammogram, [facility]. 06/04/2019 Left Diagnostic Mammogram, [facility]. 05/10/2021 Bilateral Screening Mammogram, [facility]. Tissue Density: The breast tissue is heterogeneously dense. This may lower the sensitivity of mammography. Findings: Analyzed By CAD. There is some chronic nodularity present bilaterally. No suspicious groups of microcalcifications, spiculated or lobular masses, architectural distortion or other secondary signs of malignancy are mammographically apparent. Overall Assessment: Benign, BI-RAD 2 Management: Screening Mammogram of both breasts in 1 year. A negative mammogram report should not preclude additional follow up of suspicious palpable abnormalities. Patient should continue monthly self breast exam. A clinical breast exam by your physician is recommended on an annual basis and results should be correlated with mammographic findings. Electronically signed and approved by: Peña Grewal D.O. Radiologis
== END | disposition home or self-care (01) ==
LOC: RADMAMWWP 16:53
PROVIDERS: ATTEND Internal Medicine
DX: Z12.31 Encounter for screening mammogram for malignant neoplasm of breast (principal); Z78.0 Asymptomatic menopausal state; Z80.3 Family history of malignant neoplasm of breast
CPT/HCPCS: 77063; 77067

== ENCOUNTER → 2022-07-31 | Outpatient (CLI) | payer BC ==
--- NOTE | 2022-07-31 20:23 | CT ---
EXAMINATION TYPE: CT abdomen pelvis wo con CT DLP: 235 mGycm, Automated exposure control for dose reduction was used. DATE OF EXAM: 07/31/2022 4:36 PM COMPARISON: CT abdomen pelvis most recent from 02/28/2022 CLINICAL INDICATION:Female, 62 years old with history of N20.0 ABNORMAL RESULTS OF THYROID FUNCTION S TUDIES; TECHNIQUE: Axial CT of the abdomen and pelvis. Sagittal and coronal reformats were created on a [employer] workstation. Contrast used: None Oral contrast used: None FINDINGS: LOWER CHEST: Unremarkable ABDOMEN LIVER: Unremarkable GALLBLADDER AND BILE DUCTS: Unremarkable. PANCREAS: Unremarkable. SPLEEN: Unremarkable. ADRENAL GLANDS: Unremarkable. KIDNEYS AND URETERS: Moderate to severe right hydronephrosis with thinning of the renal cortex. The r ight ureter is relatively nondistended and suboptimally evaluated given patient body habitus. No evid ence of left renal hydronephrosis. Left renal cortical calcification measuring 2 mm. Indeterminate le ft renal cyst measuring up to 1.5 cm is unchanged from prior on 02/28/2022 and the lower pole. PELVIS BLADDER: Unremarkable REPRODUCTIVE: Unremarkable. ABDOMEN & PELVIS STOMACH AND BOWEL: No evidence of bowel obstruction. There is a large stool burden throughout the col on. PERITONEUM: No evidence of pneumoperitoneum or free fluid. VASCULATURE: No evidence of aortic aneurysm. MUSCULOSKELETAL: No acute osseous abnormalities, multilevel disc bulging in the lumbar spine. Spinal canal and neural foramen appear patent. LYMPH NODES: No gross evidence for lymphadenopathy. SOFT TISSUE/ABDOMINAL WALL: Unremarkable IMPRESSION: 1. Similar mildly atrophic right kidney with marked dilation of the renal calyces and pelvis. 2. Suspected left lower pole slightly complex cyst which is similar in size. 3. Large stool burden throughout the colon.
== END | disposition home or self-care (01) ==
LOC: RADCTMAIN 16:17
PROVIDERS: ATTEND Urology
DX: N26.1 Atrophy of kidney (terminal) (principal)
CPT/HCPCS: 74176

== ENCOUNTER → 2022-08-22 | Outpatient (CLI) | payer BC ==
--- NOTE | 2022-08-22 09:48 | US ---
EXAMINATION TYPE: US abdomen complete DATE OF EXAM: 08/22/2022 COMPARISON: CT dated 07/31/2022, US kidneys dated 02/09/2022, MRCP 02/09/2020 CLINICAL HISTORY: R16.1 SPLENOMEGALY,. Splenomegaly. Hx right-sided hydronephrosis, left kidney compl ex cyst. TECHNIQUE: Multiple sonographic images of the abdomen are obtained. FINDINGS: EXAM MEASUREMENTS: Liver Length: 13.2 cm Gallbladder Wall: 0.17 cm CBD: 1.0 cm Spleen: 9.2 cm Right Kidney: 13.3 x 6.7 x 6.9 cm Left Kidney: 12.7 x 5.5 x 5.7 cm CHAPERONE NOTES: Limited due to gas. Pancreas: Limited due to gas. Liver: Appears wnl Gallbladder: Multiple folds noted. Appears anechoic. Evidence for sonographic Estrada's sign: No CBD: Appears dilated. Spleen: Slightly limited due to gas, no evident splenomegaly and most recent CT. Right Kidney: Severe hydronephrosis seen. Appears enlarged. Left Kidney: Appears slightly enlarged. Cortical cysts have been noted on prior exams: 1.7 x 1.6 x 1. 0 cm. Upper IVC: Appears wnl Abd Aorta: Appears wnl IMPRESSION: Marked right-sided hydronephrosis is chronic. Dilated common bile duct is chronic.
== END | disposition home or self-care (01) ==
LOC: RADUSWWP 08:22
PROVIDERS: ATTEND Internal Medicine Hematology & Oncology
DX: K83.8 Other specified diseases of biliary tract (principal); N13.30 Unspecified hydronephrosis
CPT/HCPCS: 76700

== ENCOUNTER → 2023-07-09 | Outpatient (CLI) | payer BC ==
--- NOTE | 2023-07-09 09:33 | US ---
EXAMINATION TYPE: US pelvic complete DATE OF EXAM: 07/09/2023 COMPARISON: CT 2021 CLINICAL INDICATION: Female, 63 years old with history of N18.2 CHRONIC KIDNEY DISEASE, STAGE 2; TECHNIQUE: Transabdominal (TA). Transabdominal sonographic images of the pelvis were acquired. Denise ent declined transvaginal exam. Date of LMP: 10 years ago EXAM MEASUREMENTS: Uterus: not seen Endometrial Stripe: not seen Right Ovary: not seen Left Ovary: not seen 1. Uterus: not seen due to overlying bowel gas 2. Endometrium: not seen 3. Right Ovary: not seen due to overlying bowel gas 4. Left Ovary: not seen due to overlying bowel gas 5. Bilateral Adnexa: wnl 6. Posterior cul-de-sac: wnl IMPRESSION: Nonvisualization of the uterus and ovaries which may be surgically absent. No acute process.
--- NOTE | 2023-07-09 09:44 | US ---
EXAMINATION TYPE: US abdomen complete DATE OF EXAM: 07/09/2023 COMPARISON: US & CT 2021 CLINICAL INDICATION: Female, 63 years old with history of N18.2 CHRONIC KIDNEY DISEASE, STAGE 2; TECHNIQUE: Multiple sonographic images of the abdomen are obtained. FINDINGS: EXAM MEASUREMENTS: Liver Length: 13.2 cm Gallbladder Wall: 0.1 cm CBD: 1.1 cm Spleen: 9.3 cm Right Kidney: 13.4 x 6.7 x 8.0 cm Left Kidney: 12.8 x 5.2 x 5.9 cm Pancreas: visualized portions wnl, limited by overlying midline bowel gas Liver: wnl Gallbladder: wnl Evidence for sonographic Estrada's sign: no CBD: dilated Spleen: visualized portions wnl, limited by overlying bowel gas Right Kidney: enlarged, severe hydronephrosis Left Kidney: measures slightly large in size Upper IVC: wnl Abd Aorta: wnl IMPRESSION: Severe right hydronephrosis.
== END | disposition home or self-care (01) ==
LOC: RADUSWWP 08:11
PROVIDERS: ATTEND Internal Medicine
DX: N18.2 Chronic kidney disease, stage 2 (mild) (principal); N13.30 Unspecified hydronephrosis
CPT/HCPCS: 76700; 76856

== ENCOUNTER → 2023-08-01 | Outpatient (CLI) | payer BC ==
[2023-08-01 17:14] LABS: African American GFR (CKD) 74 (>60 ml/min/1.73 sqM); Blood Urea Nitrogen 19 mg/dL (7-17); Non-African American GFR(CKD) 64 (>60 ml/min/1.73 sqM)
--- NOTE | 2023-08-02 08:08 | CT ---
EXAMINATION TYPE: CT abdomen wo/w con DATE OF EXAM: 08/01/2023 COMPARISON: 07/31/2022 HISTORY: States that right ureter got blocked and has fluid build up in right ureter x [address] DLP: 459.6 mGycm Automated exposure control for dose reduction was used. TECHNIQUE: Helical acquisition of images was performed from the lung bases through the top of iliac crest to include entire abdomen. CONTRAST: Performed with Oral Contrast and with IV Contrast, patient injected with 80 cc mL of Isovue 300. FINDINGS: LUNG BASES: No significant abnormality is appreciated. LIVER/GB: There is mild central intrahepatic and proximal extrahepatic biliary dilation recommend ult rasound. PANCREAS: No significant abnormality is seen. SPLEEN: No significant abnormality is seen. ADRENALS: No significant abnormality is seen. KIDNEYS: There is severe right-sided hydronephrosis and thinning of the right renal cortex likely sec ondary general UPJ obstruction other etiologies excluded. Hypodensities within the left kidney are too small to characterize but likely related to simple cysts . No hydronephrosis or nephrolithiasis. There is an indeterminate 1.1 cm left renal lesion measuring 15 Hounsfield units. BOWEL: No significant abnormality is seen. Routine fecal debris throughout the colon. Small hiatal h ernia. LYMPH NODES: No significant abnormality is seen. OSSEOUS STRUCTURES: No significant abnormality is seen. FREE AIR: No free air is visualized. OTHER: Aorta normal caliber. Hypertrophic and degenerative changes spine. IMPRESSION: 1. Stable severe right hydronephrosis likely secondary to UPJ congenital obstruction. 2. There is an indeterminate lower pole left renal lesion measuring 50 Hounsfield units and 1 cm. 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 3. There is mild central intrahepatic and proximal extrahepatic biliary dilation recommend ultrasound .
== END | disposition home or self-care (01) ==
LOC: RADCTMAIN 16:20
PROVIDERS: ATTEND Urology
DX: D41.02 Neoplasm of uncertain behavior of left kidney (principal); N13.30 Unspecified hydronephrosis; K83.8 Other specified diseases of biliary tract
CPT/HCPCS: 82565; 84520; 74170; 36415; Q9967

== ENCOUNTER → 2023-12-03 | Outpatient (CLI) | payer BC ==
--- NOTE | 2023-12-03 17:14 | MR ---
EXAMINATION TYPE: MR brain wo con DATE OF EXAM: 12/03/2023 11:25 AM CLINICAL INDICATION:Female, 63 years old with history of R25.1 TREMOR, UNSPECIFIED; PHH, Hx of stroke , Tremors COMPARISON: MR brain 07/04/2021. TECHNIQUE: Multi planar, multi sequence imaging was performed through the brain including: T1, T2, In version recovery, Diffusion weighted imaging, and gradient echo imaging. No gadolinium was given. FINDINGS: The montalvo-white junctions, ventricular system, basal cisterns appear unremarkable. Pituitary gland si ze is not significantly changed from 2020. Scattered foci of high T2 signal intensity are seen within the periventricular white matter. Midline structures show no abnormality. Diffusion-weighted imaging shows no evidence of restricted diffusion. The susceptibility weighted images demonstrates blooming artifact left frontal lobe compatible with microhemorrhage versus cavernoma measuring up to 3 mm. The bone marrow signal is within normal limits. Paranasal sinuses and mastoid air cells: No significant paranasal sinus disease. Visualized orbits: Orbital contents are intact. IMPRESSION: 1. No evidence of intracranial mass or acute/subacute infarct. 2. 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
== END | disposition home or self-care (01) ==
LOC: RADMRIMAIN 10:19
PROVIDERS: ATTEND Psychiatry & Neurology Neurology
DX: R25.1 Tremor, unspecified (principal)
CPT/HCPCS: 70551

== ENCOUNTER → 2024-02-18 | Outpatient (CLI) | payer BC ==
--- NOTE | 2024-02-19 09:59 | MM ---
Reason for Exam: Screening (asymptomatic). Last mammogram was performed 1 year(s) and 8 month(s) ago. Patient History: Menarche at age 11. Patient has no children. Postmenopausal. 2004, Benign Excisional Biopsy on the right side. Sister had breast cancer, age 58. Risk Values: Anaid 5 year model risk: 3.7%. NCI Lifetime model risk: 14.4%. Prior Study Comparison: 06/04/2019 Left Diagnostic Mammogram, [facility]. 05/10/2021 Bilateral Screening Mammogram, [facility]. 07/11/2022 Bilateral MG 3D screening mammo w/cad, [facility]. Tissue Density: The breasts are heterogeneously dense, which may obscure small masses. Findings: Analyzed By CAD. There is no suspicious group of microcalcifications or new suspicious mass in either breast. Benign-appearing calcifications. Overall Assessment: Benign, BI-RAD 2 Management: Screening Mammogram of both breasts in 1 year. . Patient should continue monthly self-breast exams. A clinical breast exam by your physician is recommended on an annual basis. This exam should not preclude additional follow-up of suspicious palpable abnormalities. Note on Anaid scores and lifetime risk: 1. A Anaid score greater than 3% is considered moderate risk. If this is the case, consider specialist referral to assess eligibility for a risk reducing agent. 2. If overall lifetime risk for the development of breast cancer is 20% or higher, the patient may qualify for future screening with alternating mammogram and breast MRI. Electronically signed and approved by: Yong Mansfield M.D. Radiologis
== END | disposition home or self-care (01) ==
LOC: RADMAMWWP 13:55
PROVIDERS: ATTEND Family Medicine
DX: Z12.31 Encounter for screening mammogram for malignant neoplasm of breast (principal); Z78.0 Asymptomatic menopausal state; Z80.3 Family history of malignant neoplasm of breast
CPT/HCPCS: 77067

== ENCOUNTER → 2024-08-25 | Outpatient (CLI) | payer MEDICARE ==
--- NOTE | 2024-08-25 19:19 | US ---
EXAMINATION TYPE: US kidneys/renal and bladder DATE OF EXAM: 08/25/2024 COMPARISON: 07/09/23 CLINICAL INDICATION: Female, 64 years old with history of N13.30 HYDRONEPHROSIS, RIGHT; severe hydro on right side TECHNIQUE: Grayscale and color Doppler imaging of the bilateral kidneys and urinary bladder: FINDINGS: EXAM MEASUREMENTS: Right Kidney: 13.1 x 7.0 x 7.0 cm Left Kidney: 13.1 x 4.3 x 5.8 cm Right Kidney: severe hydronephrosis, limited parenchyma seen Left Kidney: cystic area seen inf pole measuring 1.4 x 1.1 x 1.6cm Bladder: wnl Bilateral Jets seen: Only left jet seen No nephrolithiasis. IMPRESSION: 1. Severe right hydronephrosis. No definite nephrolithiasis. 2. 1.4 cm lower pole left renal cyst. [facility], , 08/25/2024 7:17 PM
== END | disposition home or self-care (01) ==
LOC: RADUSWWP 15:46
PROVIDERS: ATTEND Urology
CPT/HCPCS: 76770

== ENCOUNTER → 2024-09-01 | Outpatient (CLI) | payer MEDICARE ==
[2024-09-01 19:38] LABS: Basophils # (A) 0.02 X 10*3/uL (0.00-0.10); Basophils % (A) 0.4 %; Eosinophils # (A) 0.02 X 10*3/uL (0.04-0.35); Eosinophils % (A) 0.4 %; HCT 38.2 % (37.2-46.3); HGB 12.5 g/dL (12.0-15.0); Lymphocytes # (A) 1.33 X 10*3/uL (0.90-5.00); Lymphocytes % (A) 27.1 %; MCH 32.3 pg (27.0-32.0); MCHC 32.7 g/dL (32.0-37.0); MCV 98.7 FL (80.0-97.0); Monocytes # (A) 0.38 X 10*3/uL (0.20-1.00); Monocytes % (A) 7.7 %; NRBC Per 100 WBC 0 X 10*3/uL (0.00-0.01); Neutrophils # (A) 3.15 X 10*3/uL (1.80-7.70); Neutrophils % (A) 64.2 %; Platelet Count 218 X 10*3/uL (140-440); RBC 3.87 X 10*6/uL (4.10-5.20); RDW 13.2 % (11.5-14.5); WBC 4.91 X 10*3/uL (4.50-10.00)
== END | disposition home or self-care (01) ==
LOC: LABWHC1 14:08
PROVIDERS: ATTEND Internal Medicine
DX: D72.819 Decreased white blood cell count, unspecified (principal)
CPT/HCPCS: 36415; 85025

== ENCOUNTER → 2025-02-11 | Outpatient (CLI) | payer BC ==
[2025-02-11 18:16] LABS: Basophils # (A) 0.02 X 10*3/uL (0.00-0.10); Basophils % (A) 0.4 %; Eosinophils # (A) 0.02 X 10*3/uL (0.04-0.35); Eosinophils % (A) 0.4 %; HCT 40.9 % (37.2-46.3); HGB 13.2 g/dL (12.0-15.0); Lymphocytes # (A) 1.35 X 10*3/uL (0.90-5.00); Lymphocytes % (A) 27.3 %; MCHC 32.3 g/dL (32.0-37.0); MCV 99.3 FL (80.0-97.0); Mean Platelet Volume 9.5 FL (9.5-12.2); Monocytes # (A) 0.42 X 10*3/uL (0.20-1.00); Monocytes % (A) 8.5 %; NRBC Per 100 WBC 0 X 10*3/uL (0.00-0.01); Neutrophils # (A) 3.12 X 10*3/uL (1.80-7.70); Neutrophils % (A) 63.2 %; Platelet Count 255 X 10*3/uL (140-440); RBC 4.12 X 10*6/uL (4.10-5.20); RDW 13.1 % (11.5-14.5); WBC 4.94 X 10*3/uL (4.50-10.00)
[2025-02-11 18:27] LABS: BUN/Creat Ratio 19.56 Ratio (12.00-20.00); Blood Urea Nitrogen 17.6 mg/dL (9.0-27.0); Glucose 101 mg/dL (70-110)
[2025-02-11 18:28] LABS: ALT 22 U/L (8-44); AST 28 U/L (13-35); Albumin 4.4 g/dL (3.8-4.9); Albumin/Globulin Ratio 1.91 Ratio (1.60-3.17); Alkaline Phosphatase 65 U/L (41-126); Calcium 9.5 mg/dL (8.7-10.3); Carbon Dioxide 28.9 mmol/L (21.6-31.8); Chloride 104 mmol/L (96-109); Globulin 2.3 g/dL (1.6-3.3); Potassium 4.2 mmol/L (3.5-5.5); Sodium 143 mmol/L (135-145); Total Bilirubin <0.2 mg/dL (0.3-1.2); Total Protein 6.7 g/dL (6.2-8.2)
== END | disposition home or self-care (01) ==
LOC: LABWHC1 14:53
PROVIDERS: ATTEND Internal Medicine
DX: R53.83 Other fatigue (principal)
CPT/HCPCS: 36415; 80053; 85025

== ENCOUNTER → 2025-02-20 | Outpatient (CLI) | payer MEDICARE ==
[2025-02-23 11:10] LABS: Lead, Blood <0.5 ug/dL (<5.0)
== END | disposition home or self-care (01) ==
LOC: LABWHC1 14:42
PROVIDERS: ATTEND Internal Medicine
DX: D75.89 Other specified diseases of blood and blood-forming organs (principal); R53.83 Other fatigue; Z77.018 Contact with and (suspected) exposure to other hazardous metals
CPT/HCPCS: 36415; 82525; 82607; 83655; 83825

== ENCOUNTER → 2025-05-25 | Outpatient (CLI) | payer MEDICARE ==
--- NOTE | 2025-05-26 11:16 | BD ---
EXAMINATION TYPE: Axial Bone Density DATE OF EXAM: 05/25/2025 CLINICAL HISTORY: 64 years old Female. ICD-10 CODE: Z78.0 ASYMPTOMATIC MENOPAUSAL STATE , Additional History: Height: 65 Weight: 10.7.3 FRAX RISK QUESTIONS: Alcohol (3 or more units per day): no Family History (Parent hip fracture): no Glucocorticoids (More than 3mos): no (Ex: prednisone, prednisolone, methylprednisolone, dexamethasone, and hydrocortisone). History of Fracture in Adulthood: no Secondary Osteoporosis: 1. Type 1 Diabetes: no 2. Hyperthyroidism: no 3. Menopause before 45: no 4. Malnutrition: no 5. Chronic liver disease: no Rheumatoid Arthritis: no Current Tobacco Use: no RISK FACTORS HISTORY OF: Surgery to Spine/Hip(right/left)/Wrist (right/left): no EXAM MEASUREMENTS: Bone mineral densitometry was performed using the [employer] System. Bone mineral density as measured about the Lumbar spine is: ----- L1-L4(G/cm2): 1.113 T Score Values are as follows: ----- L1: -1.0 ----- L2: -0.7 ----- L3: -0.6 ----- L4: -0.6 ----- L1-L4: -0.6 Z Score Values are as follows: ----- L1: 1.1 ----- L2: 1.5 ----- L3: 1.5 ----- L4: 1.9 ----- L1-L4: 1.6 Bone mineral density has: decreased -5.3 % since study of: 12.15.2019 Bone mineral density about the R hip (g/cm2): 0.861 Bone mineral density about the L hip (g/cm2): 0.842 T Score values are as follows: -----R Neck: -1.3 -----L Neck: -1.3 -----R Total: -1.2 -----L Total: -1.3 Z Score values are as follows: -----R Neck: 0.5 -----L Neck: 0.5 -----R Total: 0.5 -----L Total: 0.3 Bone mineral density has: decreased -5.5 % since study of: 2.3.2019 FRAX%s: The graph provided illustrates a 7.1% chance for a major osteoporotic fx and a 0.8% chance fo r the hips probability for fx in 10 years time. IMPRESSION: Osteopenia (T Score between -2.5 and -1). There is slightly increased risk of fracture and the patient may be considered for treatment. Re-Screen 2-5 years. NOTE: T-SCORE=SD OF THE YOUNG ADULT MEAN. [facility], , 05/26/2025 11:13 AM
== END | disposition home or self-care (01) ==
LOC: RADBDWWP 14:09
PROVIDERS: ATTEND Family Medicine
DX: M85.89 Other specified disorders of bone density and structure, multiple sites (principal); Z78.0 Asymptomatic menopausal state
CPT/HCPCS: 77080